=== PATIENT | female | born 2000 | race Caucasian/White ===

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

== ENCOUNTER → 2022-01-30 | Outpatient (REF) | payer OTHER ==
[2022-01-30 15:12] LABS: APPEARANCE, URINE MANUAL HAZY (CLEAR); BILIRUBIN, URINE MANUAL NEGATIVE (NEGATIVE); BLOOD URINE MANUAL POSITIVE (NEGATIVE); COLOR, URINE MANUAL YELLOW (YELLOW); GLUCOSE, URINE (UA) MANUAL NEGATIVE (NEGATIVE); KETONE, URINE MANUAL NEGATIVE (NEGATIVE); LEUKOCYTE ESTERASE, URINE MAN NEGATIVE (NEGATIVE); NITRITE, URINE MANUAL NEGATIVE (NEGATIVE); PROTEIN, URINE MANUAL 1+ mg/dL (NEGATIVE); SPECIFIC GRAVITY,URINE MANUAL 1.025 (1.002-1.035); UROBILINOGEN, URINE MANUAL NORMAL (NORMAL)
[2022-01-30 15:37] LABS: BACTERIA, URINE MOD AMOUNT; HYALINE CAST, URINE NONE SEEN /lpf (0-1); MUCUS, URINE MOD AMOUNT (NEGATIVE); SQUAMOUS EPITHELIAL CELL URINE LARGE AMOUNT /hpf (SMALL AMT)
== END ==
LOC: M LAB REF 12:15
PROVIDERS: ATTEND Physician Assistant
DX: R05.9 Cough, unspecified (principal); N39.0 Urinary tract infection, site not specified

== ENCOUNTER 2022-10-12 00:50 | Emergency (ER) | payer BC, OTHER ==
[~2022-10-12] VITALS: Ht 162.6 cm; Wt 73.5 kg
[2022-10-12] MEDS ORDERED: TRI-1TAB20 (00:56)
[2022-10-12 08:47] VITALS: BP 122/74; TEMP 98.4; O2SAT 99
== END 2022-10-12 08:50 | disposition home or self-care (01) ==
LOC: M ED 00:50
DX: S00.83XA Contusion of other part of head, initial encounter (principal); W50.0XXA Accidental hit or strike by another person, initial encounter; F10.10 Alcohol abuse, uncomplicated; Y93.68 Activity, volleyball (beach) (court); Z79.899 Other long term (current) drug therapy